=== PATIENT | female | born 1940 | race Caucasian/White ===

== ENCOUNTER 2016-04-15 16:59 | Inpatient (IN) | payer MEDICARE, OTHER ==
--- NOTE | ~2016-04-15 | CN ---
Consultation Report [facility] [address] [facility] [place]. [address] NAME: HEIDY GUZMAN : 42 STATUS : DIS IN [facility]#: [id number] AGE: 75 ADM/REG DATE : 04/15/16 MR#: [id number] REPORT SERV DATE: 04/22/16 DICTATED BY: RYAN PICKETT DATE: 04/19/16 REPORT STATUS : Draft TRANSCRIBED BY: MODL DATE: 04/19/16 CONSULTATION DATE OF CONSULTATION: 04/19/[address] Fuchs: Thank you requesting my opinion regarding evaluation and management of Ms. Heidy Guzman's shortness of breath. Ms. Guzman is a pleasant 75-year-old female, patient of Dr. Begum, my partner, who originally presented to [facility] on 04/16/2016 with shortness of breath. She was deemed to have an acute exacerbation of COPD, asthma, obstructive sleep apnea, and volume overload from systolic and diastolic cardiac dysfunction. CT scan of the chest also demonstrated volume overload and interstitial edema. She has been treated with bronchodilators, prednisone, BiPAP therapy, and diuretics with significant clinical response. HISTORY OF PRESENT ILLNESS: Ms. Guzman states that her shortness of breath is currently mild to moderate in nature, well localized to the chest, nonradiating with no significant alleviating or exacerbating factors. She states that she closer to her baseline. She has difficulty walking on a flat surface from any more than 50 feet, and she usually quick requires help as she cannot walk up a flight of stairs. She is generally sedentary. REVIEW OF SYSTEMS: A detailed 14-point review of systems was completed. Pertinent positives and negatives are listed above. PAST MEDICAL HISTORY: #. COPD. #. Asthma. #. Home O2 dependent on 2-3 L. #. Obstructive sleep apnea, on BiPAP. #. Arrhythmia. #. Left bundle-branch block. #. Type 2 diabetes. #. Hyperlipidemia. #. Gastroesophageal reflux disease. #. Dysphagia. #. Esophageal dilation for Schatzki ring. #. History of colonic polyps. #. Osteoarthritis. #. Morbid obesity. #. Anxiety disorder. PAST SURGICAL HISTORY: #. Cholecystectomy. Consultation Report [facility] [address] [facility] [place]. [address] NAME: HEIDY GUZMAN : 42 STATUS : DIS IN PAT#: [id number] AGE: 75 ADM/REG DATE : 04/15/16 MR#: [id number] REPORT SERV DATE: 04/22/16 DICTATED BY: RYAN PICKETT DATE: 04/19/16 REPORT STATUS : Draft TRANSCRIBED BY: TIA DATE: 04/19/16 #. Hysterectomy. #. Cataract surgery. #. Bilateral knee arthroscopy in the mid 90s. #. Polyp removal. FAMILY HISTORY: Cerebrovascular disease, hypertension, coronary artery disease, Alzheimer disease, and breast cancer. SOCIAL HISTORY: The patient worked in a [employer]. She denies any current tobacco abuse, but she had significant secondhand smoke exposure from her . She denies any significant history of alcohol or illicit drug abuse. ALLERGIES: Sulfa, Keflex, codeine, tetracycline, Lexapro, and penicillin. HOME MEDICATIONS: Reviewed and located in the paper chart. PHYSICAL EXAMINATION: VITAL SIGNS: Afebrile, T-current of 96, pulse of 65, 2 L 95%, and blood pressure 125/74. GENERAL: No acute distress. Able to communicate in full paragraphs at a time. Morbidly obese. HEENT: Normocephalic, atraumatic. Pupils are equal, round, and reactive to light and accommodation. Posterior oropharynx is crowded. NECK: Thick neck. CARDIOVASCULAR: Regular rate and rhythm. S1, S2 present. LUNGS: Diminished breath sounds bilaterally mostly due to body habitus. No end-expiratory wheezes are noted. ABDOMEN: Protuberant. Large pannus. Soft. No guarding or rebound. EXTREMITIES: No clubbing, cyanosis, or edema. Thick extremities. NEUROLOGIC: 5/5 strength in upper and lower extremities. Cranial nerves 2 through 12 intact. Gait not tested. DTRs not performed. PSYCHIATRIC: Alert and oriented x3. Appropriate mood and affect. No suicidal thoughts, intents, or plans are voiced. LABORATORY DATA: White count of 9, hemoglobin of 12, and platelet count of 264. Chemistries demonstrate a creatinine of 1.01. IMAGING STUDIES: #. CTA of the chest on 04/16/2016 demonstrated large heart size. #. Diffuse ground-glass opacity in the lungs suggesting mild chronic interstitial lung disease versus possible subtle interstitial pulmonary edema. #. Subsegmental size atelectasis in the left posterior lung base as well as focal posterior pneumonia with underlying trace pleural effusion. #. Status post cholecystectomy. </ASSESSMENT AND PLAN/> Consultation Report [facility] [id number] [place]. [address] NAME: HEIDY GUZMAN : 42 STATUS : DIS IN PAT#: [id number] AGE: 75 ADM/REG DATE : 04/15/16 MR#: [id number] REPORT SERV DATE: 04/22/16 DICTATED BY: RYAN PICKETT DATE: 04/19/16 REPORT STATUS : Draft TRANSCRIBED BY: MODL DATE: 04/19/16 Ms. Heidy Guzman is a pleasant 75-year-old female, patient of Dr. Begum, who presents to [facility] with worsening shortness of breath and dyspnea on exertion, who presented on 04/16/2016 with worsening shortness of breath and dyspnea on exertion. She has been treated with antibiotics, bronchodilators, BiPAP, and steroid therapy with significant improvement. She is currently at near her baseline. Her shortness of breath is multifactorial due to the following: #. Obesity. #. Deconditioning. #. Obstructive sleep apnea, on BiPAP. #. Chronic obstructive pulmonary disease with exacerbation, now back on her baseline home O2 of 2 to 3 L. #. Asthma. #. Anxiety. #. Congestive heart failure with an LVEF of 45% and moderate diastolic dysfunction. #. CT scan findings performed on 04/16/2016 demonstrates lung windows with mild diffuse ground-glass opacities in the lungs. These are more consistent with volume overload changes. Nonetheless, we will require outpatient followup. The patient also was noted. #. Segmental size atelectasis. RECOMMENDATIONS: A summary of my recommendations is to optimize her pulmonary status are as follows: #. Given her clinical improvement, I would not start antibiotics. #. Prednisone 40 mg p.o. daily x4 days. #. Continue Pulmicort, Brovana, DuoNebs while inpatient. #. BiPAP scheduled at night and p.r.n. #. Diuretics. #. No further recommendations. The patient has significantly improved and then likely will be discharged within next several days with home health. She will require mandatory followup with Dr. Begum. Thank you for allowing me to participate in Ms. Guzman's care. Sincerely, NANCY/MODL Ryan Pickett M.D. / [id number] CC: MD Shelly Mcclure M.D.
--- NOTE | ~2016-04-15 | DS ---
Discharge Summary [address] [place]. [address] NAME: ANAND GUZMAN : 42 STATUS : DIS IN PAT#: [id number] AGE: 75 ADM/REG DATE : 04/15/16 MR#: [id number] REPORT SERV DATE: 04/20/16 DICTATED BY: RODOLFO STALLWORTH DATE: 04/19/16 REPORT STATUS : Draft TRANSCRIBED BY: MODZohaib DATE: 04/19/16 ADMISSION DATE: 04/15/2016 DISCHARGE DATE: 04/19/2016 The patient was admitted to the Hospitalist Service. CONSULTANTS: Ryan Molina M.D. Pulmonology. DISCHARGE DIAGNOSES: 1. Hypoxemic respiratory failure, acute on chronic. 2. Acute exacerbation of chronic obstructive pulmonary disease. 3. Heart failure, systolic and diastolic dysfunction. 4. Obstructive sleep apnea. 5. Hypertension. 6. Diabetes mellitus type 2. 7. Hyperlipidemia. 8. Morbid obesity. 9. History of stroke. 10.Recent falls at home. 11.Anxiety. PROCEDURES: None. IMAGIN. PA and lateral chest x-ray on 04/15/2016 shows lungs clear, stable, mild cardiomegaly, prior granulomatous exposure. 2. CTA of the chest revealed no CTA evidence of pulmonary embolus; upper normal to mildly enlarged heart size; diffuse ground-glass opacity to lung suggesting mild chronic interstitial lung disease versus possibility of subtle interstitial pulmonary edema. Interstitial pattern appears increased or new from 05/01/2015 chest x-ray; segmental size atelectasis, posterior left lung base versus posterior pneumonia with underlying trace pleural effusion; status post cholecystectomy. 3. Transthoracic echocardiogram performed outpatient on 04/01/2016 revealed technically difficult echocardiogram. The patient declined Definity, mild decreased left ventricular systolic function with an estimated EF of 45%, grossly normal right ventricle size and function, moderate diastolic dysfunction. PERTINENT LABORATORY STUDIES: On 04/15/2016: 1. BNP 527.8. 2. TSH 1.130. 3. Hemoglobin A1c 5.5. HISTORY OF PRESENT ILLNESS: For complete history, please refer to admission H and P by Dr. Silvestre. Briefly, Ms. Guzman presented to the hospital as a direct admission from her primary care Discharge Summary [address] [place]. [address] NAME: ANAND GUZMAN DOB: [birth year] STATUS : DIS IN PAT#: [id number] AGE: 75 ADM/REG DATE : 04/15/16 MR#: [id number] REPORT SERV DATE: 04/20/16 DICTATED BY: RODOLFO STALLWORTH DATE: 04/19/16 REPORT STATUS : Draft TRANSCRIBED BY: TAI DATE: 04/19/16 provider's office, Dr. Shelly Lima, with chief complaint of shortness of breath. The patient was treated for flu-like symptoms, the patient, however, continued to have significant shortness of breath, therefore she was admitted to the hospital after failing outpatient treatment with steroids and nebulized treatments. HOSPITAL COURSE: Ms. Guzman was admitted to a telemetry bed with diagnosis of hypoxic respiratory failure, acute on chronic. She was provided with supplemental oxygen, DVT prophylaxis, breathing treatments, and IV steroids. Initially an echocardiogram was ordered; however, Ms. Guzman recently had an echo outpatient during the last week of March, therefore we obtained a copy of her echocardiogram as above. Her metformin was held, she was placed on sliding scale subcutaneous insulin. She was provided with electrolyte replacement protocol and a diabetic diet. Her home medications were continued again with the exception of her metformin. She uses her home BiPAP machine nightly. On 04/16/2016, CTA of the chest was performed, results are as above. On the evening of the 04/16/2016, she did receive one dose of IV Lasix 20 mg. She did have a good diuretic response, and on 04/17/2016, she received an additional dose of 20 mg IV Lasix. Her steroids were tapered, and she was changed from Solu-Medrol IV to prednisone p.o. Physical Therapy was ordered to evaluate and treat. On the 04/18/2016, Pulmonary consult was requested as well as evaluation for home oxygen for 24 hour a day use and to continue with her home BiPAP at night. On the 04/19/2016, Ms. Guzman was evaluated by Dr. Molina from Pulmonary who recommended complete the steroid course, continue the Pulmicort and Brovana nebulized treatments along with DuoNebs, continue diuretics as he suspected her CT chest findings more consistent with volume overload and interstitial edema rather than interstitial lung disease. Dr. Molina also recommended Ms. Guzman follow back up with Dr. Begum. On the morning of the 04/19/2016, Ms. Guzman overall was doing well. She denied any shortness of breath at rest and was ready to go home. Throughout her hospitalization, her blood pressure was elevated ranging from 140s up to 180s at times, and she had received IV hydralazine on two occasions for her blood pressure, therefore her home lisinopril dose was increased. Otherwise, on the 04/19/2016, her blood pressure was 142/72; heart rate 60; O2 saturation 95, 96 on 2 L nasal cannula. Her lungs were clear. Her respiratory rate was normal, she was in a sinus rhythm. She did have a 2/6 systolic ejection murmur. Abdomen soft and nontender. Active bowel sounds. Extremities, normal palpable distal pulses with no edema, therefore it was felt that her condition was stable and she was maximized with inpatient hospital treatment, therefore she was discharged home in stable condition. DISCHARGE INSTRUCTIONS: 1. Activity as tolerated. 2. Diet 1800 calorie ADA, diabetic diet was recommended with low sodium. DISCHARGE MEDICATIONS: Discharge medications are as follows: 1. Aspirin 81 mg p.o. daily. 2. Lipitor 80 mg p.o. daily at bedtime. 3. Celexa 20 mg p.o. daily. 4. Plavix 75 mg p.o. daily. 5. Flecainide 100 mg p.o. b.i.d. 6. Ativan 1 mg p.o. at bedtime. Discharge Summary [address] [address] NAME: ANAND GUZMAN : 42 STATUS : DIS IN PAT#: [id number] AGE: 75 ADM/REG DATE : 04/15/16 MR#: [id number] REPORT SERV DATE: 04/20/16 DICTATED BY: RODOLFO STALLWORTH DATE: 04/19/16 REPORT STATUS : Draft TRANSCRIBED BY: TIA DATE: 04/19/16 7. Mycostatin powder topically to inner thighs b.i.d. p.r.n. 8. Brovana 15 mcg nebulized b.i.d. 9. Pulmicort 1 mg nebulized b.i.d. 10.DuoNeb unit dose q.6 hours p.r.n. 11.Metformin 500 mg p.o. b.i.d. 12.Welchol 625 mg p.o. t.i.d. 13.Lisinopril 30 mg p.o. daily. 14.Lasix 20 mg p.o. Friday, Friday, and Friday with K-Dur 10 mEq p.o. Friday, Friday, and Friday. OTHER DISCHARGE INSTRUCTIONS: Include Ms. Guzman was discharged home with portable oxygen tank for 24 hours use 2 L per nasal cannula. She will also have a home health care evaluation with nursing, evaluate, and treat and monitor blood pressure with new prescriptions, also PT evaluation and treat order was written. Ms Guzman will follow up with Dr. Lima in 7 to 10 days, and she will also follow up with her smt machine operator Dr. Begum in May as previously scheduled. THALIA/TIA Robyn Stallworth [facility]- / [id number] CC: MD Shelly Mcclure M.D. Catherine Martinez, M.D.
--- NOTE | ~2016-04-15 | HP ---
History And Physical [facility] [id number] [place]. [address] NAME: ANAND TERAN : 42 STATUS : ADM IN [facility]#: [id number] AGE: 75 ADM/REG DATE : 04/15/16 MR#: [id number] REPORT SERV DATE: 04/16/16 DICTATED BY: CRISTOBAL SILVESTRE DATE: 04/15/16 REPORT STATUS : Draft TRANSCRIBED BY: MODZohaib DATE: 04/15/16 DATE OF ADMISSION: 04/15/2016 CHIEF COMPLAINT: Shortness of breath. HISTORY OF PRESENT ILLNESS: The patient is a 75-year-old white female who presented from Dr. Shelly Lima's office at 5:30 p.m. today with complaints of shortness of breath as a direct admission. She was seen by Dr. Lima brief today for followup on her shortness of breath. She reports that her shortness of breath has been going on for the last two weeks. Everybody in the family got the flu. She got treated for the flu initially, but she has had persistent shortness of breath. Dr. Lima had tried giving her steroids and nebulizing treatments in the outpatient setting, but she has continued to do poorly. Initially, when they started, she was coughing, nonproductive, but her cough has abated; however, now just getting up to the bathroom, she has significant shortness of breath and sometimes her saturations go down into the 70s. She has not had any lightheadedness. She has not had any trouble with thought process. She has had one fall because of her shortness of breath and has suffered multiple bruises to her side and her arm. She denied any fevers, but she said she has felt hot and she has had occasional chest pain. She denied any vomiting, but she has had some nausea and she has had mild diarrhea. She denied any blood in her stool. She has not had any urinary symptoms. When she came to see Dr. Lima today, she just could not manage on her own at home, so she has been referred to the Hospitalist Service for further treatment and evaluation. REVIEW OF SYSTEMS: As noted above, all others are negative. PAST MEDICAL HISTORY: Significant for COPD and asthma that is oxygen dependent at 2 to 3 liters per day. She has obstructive sleep apnea, on BiPAP. She has nocturnal home O2 as well. She has hypertension. She has a history of arrhythmia of unknown type. She has left bundle-branch block, that is chronic. She had type 2 diabetes mellitus, hyperlipidemia, gastroesophageal reflux, some dysphagia, and status post esophageal dilatation for a Schatzki ring. Colon polyp removed in the past. She has osteoarthritis and history of obesity. She has anxiety disorder. PAST SURGICAL HISTORY: Significant for cholecystectomy, hysterectomy, cataract surgery, bilateral knee arthroscopy in the mid 90s, and polyp removed. FAMILY HISTORY: Significant for cerebrovascular disease, hypertension, coronary artery disease, Alzheimer disease, and breast cancer. ALLERGIES: TO KEFLEX, SULFA, CODEINE, TETRACYCLINE, LEXAPRO, AND PENICILLIN. HOME MEDICATIONS: Aspirin 81 mg once daily, Atorvastatin 80 mg once daily, Celexa 20 mg once daily, flecainide 100 mg twice daily, lisinopril 20 mg once daily, lorazepam 1 mg once at bedtime, Medrol Dosepak, metformin 500 mg twice daily, Nystatin powder as needed, Plavix 75 mg once daily, Pulmicort 1 mg suspension nebulize, and Welchol 625 mg one tablet p.o. three History And Physical [address] [address] NAME: ANAND TERAN : 42 STATUS : ADM IN [facility]#: [id number] AGE: 75 ADM/REG DATE : 04/15/16 MR#: [id number] REPORT SERV DATE: 04/16/16 DICTATED BY: CRISTOBAL SILVESTRE. DATE: 04/15/16 REPORT STATUS : Draft TRANSCRIBED BY: TIA DATE: 04/15/16 times daily. SOCIAL HISTORY: She lives with her family. She is , retired from working in the [employer]. She denies any tobacco abuse. Has had significant secondhand smoke from her smoking. She denies alcohol abuse. No illicit or recreational drugs. PHYSICAL EXAMINATION: GENERAL: Elderly white female, lying on the bed, appears to be in no significant respiratory distress wearing nasal cannula O2. She is awake and alert. She is oriented. VITAL SIGNS: Blood pressure is 181/76, saturation of 97% on 2 liters, respiratory rate is 28, heart rate is 75, and temperature is 97.5. HEENT: Head is normocephalic and atraumatic. Pupils are equal, round, and reactive to light. Extraocular muscles are intact. Sclerae are anicteric. Conjunctivae are normal. Oropharynx without lesion. Upper denture plates are noted. Tongue protrusion midline. Uvula midline. NECK: Supple. No evidence of jugular venous distention. No carotid bruits or thyromegaly is appreciated. No lymphadenopathy in the neck is palpable. HEART: Tachycardic. No murmurs, rubs, or gallops. PMI nondisplaced. LUNGS: Bilateral expiratory wheezing with crackles at both lung bases are noted. No rhonchi. No rales are noted. ABDOMEN: Morbidly obese, soft, and nontender. Good bowel sounds. No rebound or guarding. No organomegaly. EXTREMITIES: Without cyanosis or clubbing. 1+ pitting edema bilaterally. NEUROLOGIC: Cranial nerves II through XII are normal. Strength equal and symmetrical bilaterally. Sensory exam seems to be grossly intact. SKIN: Multiple bruising noted on the left side, upper arm and left posterior thorax. No evidence of any significant hematoma in the area. LABORATORY DATA: All labs are pending. A chest x-ray done in Dr. Lima's office one week ago did not show any evidence of pneumonia or failure. IMPRESSION: 1. Acute exacerbation of chronic obstructive pulmonary disease. 2. Hypoxic respiratory failure, acute on chronic. 3. Possibility of congestive heart failure must be rule out. 4. Hypertension. 5. Type 2 diabetes mellitus. 6. Sleep apnea with BiPAP at home. 7. Anxiety disorder. PLAN: The patient will be admitted. Aggressive nebulizing treatments will be done. O2 support will be given. Check routine labs. Check a two-dimensional echocardiogram. Home BiPAP will be used. IV steroids will be given. Oral antibiotic with Zithromax will be started. Home medications will be addressed when available. The patient remains a full code. The Hospitalist Team will follow. History And Physical [address] [address] NAME: ANAND TERAN : 42 STATUS : ADM IN [facility]#: [id number] AGE: 75 ADM/REG DATE : 04/15/16 MR#: [id number] REPORT SERV DATE: 04/16/16 DICTATED BY: CRISTOBAL SILVESTRE DATE: 04/15/16 REPORT STATUS : Draft TRANSCRIBED BY: TIA DATE: 04/15/16 SV/TIA Cristobal Silvestre M.D. / [id number] CC: Jane Kwon M.D.
[~2016-04-15 16:59] MED LIST: ATROVENT HFA17 MCG INH; ATROVENTUD INH; ATV1 PO; CELEXA20 PO; COZ50 PO; DEXAMETHASON1 MG PO; FLECAINIDE100 MG PO; FLOVENT DISK250 MCG INH; FLOVENT110 INH; FORTAMET1000 MG PO; FORTAMET500 MG PO; HALF81 PO; HYCODAN1 M1 PO; IMDUR30 PO; KLOR-CON M1010 MEQ PO; L40 PO; LEVAQUIN750 MG PO; LIPITOR40 PO; LIPITOR80 MG PO; MEDROL8 MG; NEXIUM40 PO; NITROSTAT0.4 MG SL; P10; PHENADOZ12.5 MG PO/SL; PLAVIX PO; PR25 PO; PRINZIDE1 TAB PO; SENTAB PO; TAMBOCOR; TAMBOCOR PO; TESS PO; TESSALON200 MG PO; TYLENOL 8 HR650 MG PO; ULTRAM50 PO; XOPEN0.5ML INH; XOPENEX HFA INH; ZANTAC 150 PO; ZANTAC150 MG PO; ZESTORETIC1 TA1 PO; ZESTORETIC1 TAB PO; ZOCOR20 PO
[2016-04-15 17:56] LABS: ASCORBIC ACID (UR NOT ORDER) NEG (NEG); BILIRUBIN, URINE NEGATIVE (NEG); KETONE, URINE NEGATIVE (NEG); LEUKOCYTE ESTERASE(NOT OR TRACE (NEG); WBC (NOT ORDERED) (RFLEX) 5 (0-5)
[2016-04-15] MEDS ORDERED: ATROVENTUD INH (17:59)
[2016-04-15] MEDS ORDERED: PRIN20 PO (18:00)
[2016-04-15] MEDS ORDERED: CELEXA20 PO (18:00)
[2016-04-15] MEDS ORDERED: ASAB PO (18:00)
[2016-04-15] MEDS ORDERED: LIPITOR80 MG PO (18:01)
[2016-04-15] MEDS ORDERED: MEDROLPAK4 PO (18:01)
[2016-04-15] MEDS ORDERED: NYSTATPOW TOP (18:01)
[2016-04-15] MEDS ORDERED: ATV1 PO (18:02)
[2016-04-15] MEDS ORDERED: FLECAINIDE100 MG PO (18:02)
[2016-04-15] MEDS ORDERED: PLAVIX PO (18:02)
[2016-04-15] MEDS ORDERED: GLUCPH PO (18:02)
[2016-04-15] MEDS ORDERED: WELCHOL 625 MG625 MG PO (18:03)
[2016-04-15] MEDS ORDERED: PROVHFA PO (18:04)
[2016-04-15 20:53] LABS: BASOPHILS 0.2 %; BASOPHILS ABSOLUTE 0.03 10/3/uL (0.0-0.16); EOSINOPHILS 0.2 %; EOSINOPHILS ABSOLUTE 0.03 10/3/uL (0.0-0.53); HEMATOCRIT 40.1 % (36.0-48.0); HEMOGLOBIN 13.2 g/dL (12.0-16.0); IMMATURE GRANULOCYTES 0.4 %; IMMATURE GRANULOCYTES ABSOLUTE 0.06 10/3/uL (0.0-0.11); LYMPHOCYTES 15.9 %; LYMPHOCYTES ABSOLUTE 2.39 10/3/uL (0.67-4.30); MEAN CORPUS HGB CONC 32.9 g/dL (32.0-36.0); MEAN CORPUSCULAR HEMOGLOB 30.5 pg (26.0-34.0); MONOCYTES 10.1 %; MONOCYTES ABSOLUTE 1.51 10/3/uL (0.21-1.20); NEUTROPHILS 73.2 %; NEUTROPHILS ABSOLUTE 10.98 10/3/uL (2.02-8.40); PLATELET COUNT 320 10/3/uL (150-400); RBC DISTRIBUTION WIDTH 13.8 % (12.0-16.0); RED CELL COUNT 4.33 10/6/uL (4.0-5.6)
[2016-04-15 20:55] LABS: MANUAL DIFF NO %; MEAN CORPUSCULAR VOLUME 92.6 fL (80-100)
[2016-04-15 21:14] LABS: A/G RATIO 0.9 (0.7-1.9); ALBUMIN 3.3 G/DL (3.5-5.0); ALKALINE PHOSPHATASE 85 U/L (45-117); BUN (BLOOD UREA NITROGEN) 16 MG/DL (6-23); CALCIUM, SERUM 9.2 MG/DL (8.5-10.4); CHLORIDE, SERUM 103 MMOL/L (96-112); CO2 (CARBON DIOXIDE) 34 MMOL/L (24-34); CREATININE 0.97 MG/DL (0.55-1.02); FERRITIN 29 NG/ML (8-252); FREE T4 1.34 NG/DL (0.76-1.46); GFR AFRICAN AMERICAN 67 ML/MIN (>=60); GFR NON AFRICAN AMERICAN 58 ML/MIN (>=60); GLOBULIN 3.8 G/DL (2.5-4.1); IRON BINDING CAPACITY 350 MCG/DL (225-410); IRON, SERUM 61 MCG/DL (35-150); POTASSIUM, SERUM 3.7 MMOL/L (3.5-5.3); SGOT(AST) 17 U/L (5-40); SGPT(ALT) 30 U/L (5-65); SODIUM, SERUM 142 MMOL/L (135-148); TOTAL BILIRUBIN 0.5 MG/DL (0-1.2); TOTAL PROTEIN 7.1 G/DL (6.0-8.5)
[2016-04-15 21:16] LABS: GLUCOSE, SERUM 125 MG/DL (60-99); TROPONIN I 0.06 NG/ML (<0.05)
[2016-04-15 21:43] LABS: B NATRIURETIC PEPTIDE (BNP) 527.8 PG/ML (< 100.0)
[2016-04-15 22:06] LABS: GLYCOHEMOGLOBIN (HbA1c) 5.5 % (4.7-6.1)
[2016-04-15 22:23] LABS: PROCALCITONIN <0.05 ng/mL (<0.5)
[2016-04-16 13:05] LABS: TROPONIN I 0.03 NG/ML (<0.05)
[2016-04-17 06:26] LABS: BASOPHILS 0 %; EOSINOPHILS 0.1 %; EOSINOPHILS ABSOLUTE 0.01 10/3/uL (0.0-0.53); HEMATOCRIT 38.6 % (36.0-48.0); HEMOGLOBIN 12.7 g/dL (12.0-16.0); IMMATURE GRANULOCYTES 0.6 %; IMMATURE GRANULOCYTES ABSOLUTE 0.06 10/3/uL (0.0-0.11); LYMPHOCYTES 9.4 %; LYMPHOCYTES ABSOLUTE 0.94 10/3/uL (0.67-4.30); MANUAL DIFF NO %; MEAN CORPUS HGB CONC 32.9 g/dL (32.0-36.0); MEAN CORPUSCULAR HEMOGLOB 30.5 pg (26.0-34.0); MEAN CORPUSCULAR VOLUME 92.6 fL (80-100); MEAN PLATELET VOLUME 10.5 fL (9.2-13.0); MONOCYTES 3.2 %; MONOCYTES ABSOLUTE 0.32 10/3/uL (0.21-1.20); NEUTROPHILS 86.7 %; NEUTROPHILS ABSOLUTE 8.68 10/3/uL (2.02-8.40); PLATELET COUNT 284 10/3/uL (150-400); RBC DISTRIBUTION WIDTH 14.1 % (12.0-16.0); RED CELL COUNT 4.17 10/6/uL (4.0-5.6)
[2016-04-17 06:38] LABS: BUN (BLOOD UREA NITROGEN) 19 MG/DL (6-23); CALCIUM, SERUM 8.9 MG/DL (8.5-10.4); CHLORIDE, SERUM 97 MMOL/L (96-112); CO2 (CARBON DIOXIDE) 36 MMOL/L (24-34); CREATININE 0.99 MG/DL (0.55-1.02); GFR AFRICAN AMERICAN 65 ML/MIN (>=60); GFR NON AFRICAN AMERICAN 56 ML/MIN (>=60); GLUCOSE, SERUM 184 MG/DL (60-99); POTASSIUM, SERUM 4.4 MMOL/L (3.5-5.3); SODIUM, SERUM 142 MMOL/L (135-148)
[2016-04-18 07:00] LABS: HEMATOCRIT 36.8 % (36.0-48.0); MEAN CORPUS HGB CONC 32.6 g/dL (32.0-36.0); MEAN CORPUSCULAR HEMOGLOB 30.2 pg (26.0-34.0); MEAN CORPUSCULAR VOLUME 92.5 fL (80-100); MEAN PLATELET VOLUME 10.1 fL (9.2-13.0); PLATELET COUNT 268 10/3/uL (150-400); RBC DISTRIBUTION WIDTH 14.1 % (12.0-16.0); RED CELL COUNT 3.98 10/6/uL (4.0-5.6); WHITE BLOOD CELLS 11.1 10/3/uL (4.5-10.5)
[2016-04-18 07:01] LABS: MANUAL DIFF YES %
[2016-04-18 07:14] LABS: BUN (BLOOD UREA NITROGEN) 29 MG/DL (6-23); CALCIUM, SERUM 8.5 MG/DL (8.5-10.4); CHLORIDE, SERUM 97 MMOL/L (96-112); CO2 (CARBON DIOXIDE) 37 MMOL/L (24-34); CREATININE 1.07 MG/DL (0.55-1.02); GFR AFRICAN AMERICAN 59 ML/MIN (>=60); GFR NON AFRICAN AMERICAN 51 ML/MIN (>=60); GLUCOSE, SERUM 121 MG/DL (60-99); SODIUM, SERUM 140 MMOL/L (135-148)
[2016-04-18 07:25] LABS: LYMPHOCYTES 20 %; LYMPHOCYTES ABSOLUTE (CALC) 2.22 10/3/uL (0.67-4.30); MONOCYTES 2 %; MONOCYTES ABSOLUTE (CALC) 0.22 10/3/uL (0.21-1.20); NEUTROPHILS ABSOLUTE (CALC) 8.66 10/3/uL (2.02-8.40); PLATELET ESTIMATE ADQ (ADEQUATE); RBC MORPHOLOGY NORM (NORMAL); SEGMENTED NEUTROPHIL (0) 78 %; TOTAL NUCLEATED CELLS 100
[2016-04-19 04:46] LABS: BUN (BLOOD UREA NITROGEN) 32 MG/DL (6-23); CALCIUM, SERUM 8.7 MG/DL (8.5-10.4); CHLORIDE, SERUM 97 MMOL/L (96-112); CO2 (CARBON DIOXIDE) 37 MMOL/L (24-34); CREATININE 1.01 MG/DL (0.55-1.02); GFR AFRICAN AMERICAN 64 ML/MIN (>=60); GFR NON AFRICAN AMERICAN 55 ML/MIN (>=60); GLUCOSE, SERUM 105 MG/DL (60-99); POTASSIUM, SERUM 3.8 MMOL/L (3.5-5.3); SODIUM, SERUM 141 MMOL/L (135-148)
[2016-04-19 05:36] LABS: BASOPHILS 0 %; EOSINOPHILS 0.1 %; EOSINOPHILS ABSOLUTE 0.01 10/3/uL (0.0-0.53); HEMOGLOBIN 12.2 g/dL (12.0-16.0); IMMATURE GRANULOCYTES 0.5 %; IMMATURE GRANULOCYTES ABSOLUTE 0.05 10/3/uL (0.0-0.11); LYMPHOCYTES 22.9 %; LYMPHOCYTES ABSOLUTE 2.17 10/3/uL (0.67-4.30); MEAN CORPUSCULAR HEMOGLOB 30.3 pg (26.0-34.0); MEAN PLATELET VOLUME 10.3 fL (9.2-13.0); MONOCYTES 8.4 %; NEUTROPHILS 68.1 %; NEUTROPHILS ABSOLUTE 6.44 10/3/uL (2.02-8.40); PLATELET COUNT 264 10/3/uL (150-400); RED CELL COUNT 4.02 10/6/uL (4.0-5.6); WHITE BLOOD CELLS 9.5 10/3/uL (4.5-10.5)
[2016-04-19 05:42] LABS: MANUAL DIFF NO %
[2016-04-19] MEDS ORDERED: DUONEB INH (15:18)
[2016-04-19] MEDS ORDERED: ZESTRIL30 MG PO (15:21)
[2016-04-19] MEDS ORDERED: BROVANA15 MCG INH (15:23)
[2016-04-19] MEDS ORDERED: PULRESP1 INH ×2 (15:23→15:27)
[2016-04-19] MEDS ORDERED: L20 PO (15:25)
[2016-04-19] MEDS ORDERED: K-TABS10 MEQ PO (15:26)
== END 2016-04-19 16:23 | disposition home health service (06) | DRG 189 ==
LOC: 6NO 16:59
PROVIDERS: Hospitalist; Internal Medicine; Nurse Practitioner
PROC: 5A09357 Assistance with Respiratory Ventilation, Less than 24 Consecutive Hours, Continuous Positive Airway Pressure (ICD-10-PCS; principal; 2016-04-18)
DX: J96.21 Acute and chronic respiratory failure with hypoxia (principal); I50.43 Acute on chronic combined systolic (congestive) and diastolic (congestive) heart failure; Z99.81 Dependence on supplemental oxygen; J44.1 Chronic obstructive pulmonary disease with (acute) exacerbation; K22.2 Esophageal obstruction; Z68.42 Body mass index [BMI] 45.0-49.9, adult; E11.9 Type 2 diabetes mellitus without complications; I11.0 Hypertensive heart disease with heart failure; G47.33 Obstructive sleep apnea (adult) (pediatric); F41.9 Anxiety disorder, unspecified; R13.10 Dysphagia, unspecified; J45.909 Unspecified asthma, uncomplicated; E78.5 Hyperlipidemia, unspecified; K21.9 Gastro-esophageal reflux disease without esophagitis; I44.7 Left bundle-branch block, unspecified; E66.01 Morbid (severe) obesity due to excess calories; Z86.010 Personal history of colon polyps; Z91.81 History of falling; Z86.73 Personal history of transient ischemic attack (TIA), and cerebral infarction without residual deficits; Z79.84 Long term (current) use of oral hypoglycemic drugs; Z90.49 Acquired absence of other specified parts of digestive tract; Z88.0 Allergy status to penicillin; Z88.1 Allergy status to other antibiotic agents; Z88.5 Allergy status to narcotic agent; Z79.82 Long term (current) use of aspirin
CPT/HCPCS: 71020; 71275; 80048; 80053; 81001; 82728; 82962; 83036; 83540; 83550; 83735; 83880; 84145; 84439; 84443; 84484; 85025; 86140; 93005; 94640; 97161-GP; A9270-GY; G8978-CI-GP; G8979-CH-GP; J0360; J1940; J1956; J2405; J2550; J2930; Q9967